=== PATIENT | female | born 1985 | race Two or more races ===

== ENCOUNTER 2019-12-16 11:20 | Emergency (ER) | payer MEDICAID, OTHER ==
--- NOTE | 2019-12-16 12:37 | ER Document Report ---
HPI - HPI Time Seen by Provider: 12/16/19 12:27 Notes: CHIEF COMPLAINT: Right ear pain and drainage for 3 days HPI: 34-year-old female presenting to the emergency department complaining of nasal congestion slight cough sore throat over the last 3 days. No fever. Patient began having increasing right ear pain as well over the last 3 days and began having bloody drainage over the last 2. Reports prior history of tubes in the right ear ROS: See HPI - all other systems were reviewed and are otherwise negative Constitutional: no fever Eyes: no drainage, no blurred vision ENT: + runny nose, + sore throat, positive ear pain and drainage Cardiovascular: no chest pain Resp: no SOB, no cough GI: no vomiting, no diarrhea, no abdominal pain : no dysuria Integumentary: no rash Allergy: no hives Musculoskeletal: no extremity pain or swelling Neurological: no numbness/tingling, no weakness MEDICATIONS: I agree with the patient medications as charted by the RN. ALLERGIES: I agree with the allergies as charted by the RN. PAST MEDICAL HISTORY/PAST SURGICAL HISTORY: Reviewed and agree as charted by RN. SOCIAL HISTORY: Reviewed and agree as charted by RN. FAMILY HISTORY: No significant familial comorbid conditions directly related to patient complaint EXAM: Reviewed vital signs as charted by RN. CONSTITUTIONAL: Alert and oriented and responds appropriately to questions. Well-appearing; well-nourished, mild distress secondary to pain HEAD: Normocephalic; atraumatic EYES: PERRL; Conjunctivae clear, sclerae non-icteric ENT: normal nose; positive clear rhinorrhea; moist mucous membranes; pharynx without lesions noted, no uvula edema or deviation, no tonsillar hypertrophy, phonation normal. Left tympanic membrane is not hyperemic but is bulging with serous fluid. Right tympanic membrane is hyperemic with some blood behind the membrane with a small perforation noted at approximately 7:00. NECK: Supple without meningismus; non-tender; no cervical lymphadenopathy, no masses CARD: RRR; no murmurs, no clicks, no rubs, no gallops; symmetric distal pulses RESP: Normal chest excursion without splinting or tachypnea; breath sounds clear and equal bilaterally; no wheezes, no rhonchi, no rales, pulse oximetry ABD/GI: Normal bowel sounds; non-distended; soft, non-tender, no rebound, no guarding; no palpable organomegaly or masses. BACK: The back appears normal and is non-tender to palpation, there is no CVA tenderness EXT: Normal ROM in all joints; no cyanosis, no effusions, no edema SKIN: Normal color for age and race; warm; dry; good turgor; no acute lesions noted NEURO: Moves all extremities equally; Motor and sensory function intact PSYCH: The patient's mood and manner are appropriate. Grooming and personal hygiene are appropriate. MDM: 34-year-old female with likely right ear infection with a small perforation now. Has used Floxin drops previously per the patient. Does not have an ENT in [facility]. Given her infection will place her on both oral antibiotics and eardrops, states she is allergic to Tylenol with codeine has never taken synthetics, states it makes her heart beat fast Past Medical History - Social History Smoking Status: Unknown if Ever Smoked Family History: Reviewed & Not Pertinent Discharge - Discharge Clinical Impression: Otitis media, right Qualifiers: Otitis media type: unspecified Qualified Code(s): H66.91 - Otitis media, unspecified, right ear Perforated tympanic membrane Qualifiers: Laterality: right Qualified Code(s): H72.91 - Unspecified perforation of tympanic membrane, right ear Condition: Stable Disposition: HOME, SELF-CARE Instructions: Perforated Eardrum ([facility]) Additional Instructions: Medications as prescribed no driving if taking narcotics. Follow-up closely with ENT for further evaluation and treatment call for appointment Prescriptions: Amoxicillin 1 tab PO TID #30 tab Ciprofloxacin HCl/Hc [Cipro HC Otic Suspension] 3 drop AD Q6 #1 bottle Hydrocodone/Acetaminophen [[place] 5-325 mg Tablet] 1 tab PO Q4 PRN #15 tablet PRN Reason: Referrals: PIERRE COTA DO [ASSOCIATE] - Follow up as needed
[2019-12-16 13:21] VITALS: BP 143/78
== END 2019-12-16 13:21 | disposition home or self-care (01) ==
LOC: ER 11:20
DX: H66.91 Otitis media, unspecified, right ear (principal); H72.91 Unspecified perforation of tympanic membrane, right ear; R09.81 Nasal congestion; J02.9 Acute pharyngitis, unspecified; J34.89 Other specified disorders of nose and nasal sinuses; Z88.8 Allergy status to other drugs, medicaments and biological substances
CPT/HCPCS: 99282

== ENCOUNTER → 2020-04-07 | Outpatient (CLI) | payer MEDICAID ==
--- NOTE | 2020-04-07 15:56 | RADIOLOGY REPORT (SQ) ---
EXAM DESCRIPTION: U/S [id number] TRNABD 1GES W/ODOP IMAGES COMPLETED DATE/TIME: 04/07/2020 3:40 pm REASON FOR STUDY: ENCOUNTER FOR SUPERVISION OF OTHER NORMAL , FIRST TRIMESTER Z34.81 ENCOU NTER FOR SUPRVSN OF NORMAL , FIRST TRIM COMPARISON: None. TECHNIQUE: Transabdominal static and realtime grayscale images acquired of the pelvis. Additional se lected spectral and color Doppler images recorded. All images stored on PACs. bHCG: Not available CLINICAL DATES: 9 weeks 3 days LIMITATIONS: None. FINDINGS: FETUS: Single Living intrauterine . ULTRASOUND EGA: 9 weeks 4 days ULTRASOUND HARJIT: 11/06/2020 EFW: Not applicable less than 20 weeks. CRL: 2.77 cm FHR: 178 beats per minute. SURVEY: Too early to assess. AMNIOTIC FLUID: Adequate amount. PLACENTA: Not yet developed due to early gestation. SUBCHORIONIC BLEED: Yes SIZE OF BLEED: 2 x 0.9 x 1.2 cm UTERUS: No masses. No anomalies. CERVICAL LENGTH: 3.7 cm Closed. RIGHT ADNEXA: Normal ovary with normal vascular flow. 3.1 x 1.9 x 1.5 cm. 16 mm corpus luteum. No adnexal free fluid. No adnexal masses. LEFT ADNEXA: Ovary not seen. No adnexal free fluid. No adnexal masses. FREE FLUID: None. OTHER: No other significant finding. IMPRESSION: LIVING INTRAUTERINE . EGA 9 weeks 4 days. Trimester of : First trimester - 0 to 13 weeks. TECHNICAL DOCUMENTATION: JOB ID: [id number] [employer]- All Rights Reserved rev-02/28 Reading location - IP/workstation name: [email or web address]
== END ==
LOC: RAD 14:43
PROVIDERS: ATTEND Nurse Practitioner Family
DX: O34.81 Maternal care for other abnormalities of pelvic organs, first trimester (principal); N83.11 Corpus luteum cyst of right ovary; Z3A.09 9 weeks gestation of pregnancy
CPT/HCPCS: 76801

== ENCOUNTER 2020-04-18 18:28 | Emergency (ER) | payer MEDICAID ==
--- NOTE | 2020-04-18 19:34 | ER Document Report ---
ED Medical Screen (RME) - General Chief Complaint: Vag Bleeding, +preg <12wks Stated Complaint: VAGINAL BLEEDING Time Seen by Provider: 04/18/20 19:28 Primary Care Provider: FREDDIE JERRY ARNP [Primary Care Provider] - Follow up as needed Mode of Arrival: Ambulatory Information source: Patient Notes: 34-year-old female presented to ED for complaint of vaginal bleeding pelvic pain and back pain and she states she is 11 weeks . She states she is 4 para 1. Last menstrual cycle was February 01, 2020. She lives alone with her child. 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 Patient is alert oriented respirations regular nonlabored speaking in full sentences walks with even steady gait. I have greeted and performed a rapid initial assessment of this patient. A comprehensive ED assessment and evaluation of the patient, analysis of test results and completion of medical decision making process will be conducted by an additional ED providers. TRAVEL OUTSIDE OF THE [place] IN LAST 30 DAYS: No - Related Data Allergies/Adverse Reactions: codeine Allergy (Verified 04/18/20 19:33) Physical Exam - Vital signs Vitals: Temp Pulse Resp BP Pulse Ox 98.9 F 111 H 20 128/81 H 100 04/18/20 18:39 04/18/20 18:39 04/18/20 18:39 04/18/20 18:39 04/18/20 18:39 Course - Vital Signs Vital signs: Temp Pulse Resp BP Pulse Ox 98.9 F 111 H 20 128/81 H 100 04/18/20 18:39 04/18/20 18:39 04/18/20 18:39 04/18/20 18:39 04/18/20 18:39 Doctor's Discharge - Discharge Referrals: FREDDIE JERRY ARNP [Primary Care Provider] - Follow up as needed
--- NOTE | 2020-04-18 20:27 | RADIOLOGY REPORT (SQ) ---
US PELVIS HISTORY: Early . Pelvic pain. COMPARISON: 04/07/2020 TECHNIQUE: Grayscale, color Doppler, and spectral Doppler ultrasound images of the pelvis were obtained. FINDINGS: There is an intrauterine gestational sac with a yolk sac and pole visualized. The crown-rump length measures 4.4 cm corresponding to 11 weeks 2 days. The heart rate is 182 bpm. There is an adjacent subchorionic hemorrhage measuring 2.2 x 2.0 cm. The cervix measures 3.2 cm and contains small amount of fluid. The left ovary was not visualized. The right ovary measures 4.4 cm and contains a 1.4 cm corpus luteum cyst. There is normal color Doppler blood flow in the right ovary. No free fluid. IMPRESSION: 1. Single live IUP with estimated gestational age 11 weeks 2 days. 2. Small adjacent subchorionic hematoma; attention on follow-up imaging is suggested. 3. 1.4 cm right ovarian corpus luteum cyst, for which no follow-up imaging is needed.
[2020-04-18 20:57] LABS: ABSOLUTE BASOPHILS # (AUTO) 0.1 10^3/uL (0.0-0.2); ABSOLUTE LYMPHOCYTES (AUTO) 2.3 10^3/uL (0.5-4.7); ABSOLUTE MONOCYTES (AUTO) 0.7 10^3/uL (0.1-1.4); ABSOLUTE NEUT (AUTO) 8.1 10^3/uL (1.7-8.2); BASOPHILS % (AUTO) 0.9 % (0-2); EOSINOPHILS % (AUTO) 0.4 % (0-6); HEMATOCRIT 32.2 % (36.0-47.0); HEMOGLOBIN 10.7 g/dL (12.0-15.5); LYMPHOCYTES % (AUTO) 20.5 % (13-45); MEAN CORPUSCULAR HEMOGLOBIN 27.6 pg (27.0-33.4); MEAN CORPUSCULAR HGB CONC 33.4 g/dL (32.0-36.0); MEAN CORPUSCULAR VOLUME 83 fl (80-97); MONOCYTES % (AUTO) 6.4 % (3-13); PLATELET COUNT 389 10^3/uL (150-450); RED BLOOD COUNT 3.89 10^6/uL (3.72-5.28); RED CELL DISTRIBUTION WIDTH 17.3 % (11.5-14.0); SEGMENTED NEUTROPHILS % (AUTO) 71.8 % (42-78); TOTAL CELLS COUNTED % (AUTO) 100 %; WHITE BLOOD COUNT 11.3 10^3/uL (4.0-10.5)
[2020-04-18 21:00] LABS: APPEARANCE,URINE CLEAR; BILIRUBIN,URINE NEGATIVE (NEGATIVE); COLOR,URINE YELLOW; GLUCOSE, URINE NEGATIVE (NEGATIVE); KETONES,URINE NEGATIVE (NEGATIVE); LEUKOCYTE ESTERASE,URINE NEGATIVE (NEGATIVE); NITRITE,URINE NEGATIVE (NEGATIVE); PROTEIN,URINE NEGATIVE (NEGATIVE); URINE SPECIFIC GRAVITY 1.028; UROBILINOGEN,URINE NEGATIVE mg/dL (<2.0)
[2020-04-18 21:17] LABS: ALBUMIN 3.9 g/dL (3.5-5.0); ALKALINE PHOSPHATASE 69 U/L (38-126); ANION GAP 8 (5-19); ASPARTATE AMINO TRANSFERASE 22 U/L (14-36); BILIRUBIN,TOTAL 0.4 mg/dL (0.2-1.3); BLOOD UREA NITROGEN 15 mg/dL (7-20); CARBON DIOXIDE 23 mmol/L (22-30); CHLORIDE 103 mmol/L (98-107); GLUCOSE 104 mg/dL (75-110); POTASSIUM 4.4 mmol/L (3.6-5.0); TOTAL PROTEIN 7.7 g/dL (6.3-8.2)
--- NOTE | 2020-04-18 22:34 | ER Document Report ---
ED General - General Chief Complaint: Vaginal Bleeding Stated Complaint: VAGINAL BLEEDING Time Seen by Provider: 04/18/20 19:28 Primary Care Provider: FREDDIE JERRY ARNP [NO LOCAL MD] - Follow up as needed Mode of Arrival: Ambulatory Information source: Patient Notes: Patient is a 34-year-old female G4, P1 presenting to the emergency department chief complaint of vaginal bleeding in the setting of . Patient reports she is approximate 11 weeks . She started bleeding this morning. She denies passage of any clots. She states that the bleeding has been very light. She denies any abdominal pain or pelvic pain. She does not know her blood type. She was seen by the provider in triage. TRAVEL OUTSIDE OF THE [place] IN LAST 30 DAYS: No - Related Data Allergies/Adverse Reactions: codeine Allergy (Verified 04/18/20 19:33) Home Medications: PRE-NATALS Past Medical History - General Information source: Patient - Social History Smoking Status: Never Smoker Frequency of alcohol use: None Drug Abuse: None Family History: Reviewed & Not Pertinent Patient has homicidal ideation: No - Medical History Medical History: Negative Surgical Hx: Negative - Immunizations Immunizations up to date: Yes Review of Systems - Review of Systems Female Genitourinary: Vaginal bleeding -: Yes All other systems reviewed and negative Physical Exam - Vital signs Vitals: Temp Pulse Resp BP Pulse Ox 98.9 F 111 H 20 128/81 H 100 04/18/20 18:39 04/18/20 18:39 04/18/20 18:39 04/18/20 18:39 04/18/20 18:39 - Notes Notes: PHYSICAL EXAMINATION: GENERAL: Well-appearing, well-nourished and in no acute distress. HEAD: Atraumatic, normocephalic. EYES: Pupils equal round and reactive to light, extraocular movements intact, conjunctiva are normal. ENT: Nares patent, oropharynx clear without exudates. Moist mucous membranes. NECK: Normal range of motion, supple without lymphadenopathy LUNGS: Breath sounds clear to auscultation bilaterally and equal. No wheezes rales or rhonchi. HEART: Regular rate and rhythm without murmurs ABDOMEN: Soft, nontender, nondistended abdomen. No guarding, no rebound. No masses appreciated. Female : Declined Musculoskeletal: Normal range of motion, no pitting or edema. No cyanosis. NEUROLOGICAL: Cranial nerves grossly intact. Normal speech, normal gait. Normal sensory, motor exams PSYCH: Normal mood, normal affect. SKIN: Warm, Dry, normal turgor, no rashes or lesions noted. Course - Re-evaluation Re-evalutation: Laboratory 04/18/20 04/18/20 04/18/20 20:25 20:25 20:25 WBC 11.3 H RBC 3.89 Hgb 10.7 L Hct 32.2 L MCV 83 MCH 27.6 MCHC 33.4 RDW 17.3 H Plt Count 389 Lymph % (Auto) 20.5 [place] % (Auto) 6.4 Eos % (Auto) 0.4 Baso % (Auto) 0.9 Absolute Neuts (auto) 8.1 Absolute Lymphs (auto) 2.3 Absolute Monos (auto) 0.7 Absolute Eos (auto) 0.0 Absolute Basos (auto) 0.1 Seg Neutrophils % 71.8 Sodium 133.5 L Potassium 4.4 Chloride 103 Carbon Dioxide 23 Anion Gap 8 BUN 15 Creatinine 0.63 Est GFR ( Amer) > 60 Est GFR (MDRD) Non-Af > 60 Glucose 104 Calcium 9.0 Total Bilirubin 0.4 Direct Bilirubin 0.0 Neonat Total Bilirubin Not Reportable Neonat Direct Bilirubin Not Reportable Neonat Indirect Bili Not Reportable AST 22 ALT 14 Alkaline Phosphatase 69 Total Protein 7.7 Albumin 3.9 Lipase 64.0 Beta HCG, Quant 71325.00 H Total Beta HCG POSITIVE Urine Color Urine Appearance Urine pH Ur Specific [place] Urine Protein Urine Glucose (UA) Urine Ketones Urine Blood Urine Nitrite Urine Bilirubin Urine Urobilinogen Ur Leukocyte Esterase Urine WBC (Auto) Urine RBC (Auto) Squamous Epi Cells Auto Urine Mucus (Auto) Urine Ascorbic Acid Blood Type O POSITIVE Rhogam Indicated RHOGAM NOT INDICATED 04/18/20 20:25 WBC RBC Hgb Hct MCV MCH MCHC RDW Plt Count Lymph % (Auto) [place] % (Auto) Eos % (Auto) Baso % (Auto) Absolute Neuts (auto) Absolute Lymphs (auto) Absolute Monos (auto) Absolute Eos (auto) Absolute Basos (auto) Seg Neutrophils % Sodium Potassium Chloride Carbon Dioxide Anion Gap BUN Creatinine Est GFR ( Amer) Est GFR (MDRD) Non-Af Glucose Calcium Total Bilirubin Direct Bilirubin Neonat Total Bilirubin Neonat Direct Bilirubin Neonat Indirect Bili AST ALT Alkaline Phosphatase Total Protein Albumin Lipase Beta HCG, Quant Total Beta HCG Urine Color YELLOW Urine Appearance CLEAR Urine pH 5.0 Ur Specific [place] 1.028 Urine Protein NEGATIVE Urine Glucose (UA) NEGATIVE Urine Ketones NEGATIVE Urine Blood NEGATIVE Urine Nitrite NEGATIVE Urine Bilirubin NEGATIVE Urine Urobilinogen NEGATIVE Ur Leukocyte Esterase NEGATIVE Urine WBC (Auto) 1 Urine RBC (Auto) 1 Squamous Epi Cells Auto 1 Urine Mucus (Auto) FEW Urine Ascorbic Acid 40 H Blood Type Rhogam Indicated Transvaginal US 04/18/20 19:32 IMPRESSION: 1. Single live IUP with estimated gestational age 11 weeks 2 days. 2. Small adjacent subchorionic hematoma; attention on follow-up imaging is suggested. 3. 1.4 cm right ovarian corpus luteum cyst, for which no follow-up imaging is needed. Patient's ultrasound shows that she has a subchorionic hematoma. The rest of her work-up today has been reassuring. This was discussed with the patient with an revenue cycle manager present. She will follow-up with HOME HEALTH TRAVEL OT tomorrow and will likely need repeat imaging. Patient and spouse verbalized understanding of this. - Vital Signs Vital signs: Temp Pulse Resp BP Pulse Ox 98.6 F 87 18 125/78 98 04/18/20 22:35 04/18/20 22:35 04/18/20 22:35 04/18/20 22:35 04/18/20 22:35 - Laboratory Result Diagrams: 04/18/20 20:25 04/18/20 20:25 Laboratory results interpreted by me: 04/18/20 04/18/20 04/18/20 20:25 20:25 20:25 WBC 11.3 H Hgb 10.7 L Hct 32.2 L RDW 17.3 H Sodium 133.5 L Beta HCG, Quant 46932.00 H Urine Ascorbic Acid 40 H Discharge - Discharge Clinical Impression: Vaginal bleeding affecting early Subchorionic hematoma Qualifiers: Fetus number: fetus 1 of multiple gestation Trimester: second trimester Qualified Code(s): O41.8X21 - Other specified disorders of amniotic fluid and membranes, second trimester, fetus 1 Condition: Stable Disposition: HOME, SELF-CARE Additional Instructions: As discussed please follow-up with your HOME HEALTH TRAVEL OT provider or the health department. A copy of your results has been given to you for their review. Please return to the emergency department with worsening bleeding that is bleeding through more than 1 pad per hour for 3 hours consecutively or any worsening symptoms such as feeling like you are going to pass out. Forms: Return to Work Referrals: FREDDIE JERRY ARNP [NO LOCAL MD] - Follow up as needed
[2020-04-18 22:36] VITALS: BP 125/78
== END 2020-04-18 22:53 | disposition home or self-care (01) ==
LOC: ER 18:28
DX: O41.91X0 Disorder of amniotic fluid and membranes, unspecified, first trimester, not applicable or unspecified (principal); Z3A.11 11 weeks gestation of pregnancy; Z88.6 Allergy status to analgesic agent
CPT/HCPCS: 36415; 76817; 80053; 81001; 83690; 84702; 85025; 86900; 86901; 87086; 93976; 99284

== ENCOUNTER 2020-10-18 04:36 | Outpatient (CLI) | payer MEDICAID ==
[2020-10-18 05:09] LABS: APPEARANCE,URINE CLOUDY; BILIRUBIN,URINE NEGATIVE (NEGATIVE); COLOR,URINE YELLOW; GLUCOSE, URINE NEGATIVE (NEGATIVE); KETONES,URINE NEGATIVE (NEGATIVE); LEUKOCYTE ESTERASE,URINE LARGE (NEGATIVE); NITRITE,URINE NEGATIVE (NEGATIVE); PROTEIN,URINE 30 mg/dL (NEGATIVE); URINE SPECIFIC GRAVITY 1.008; UROBILINOGEN,URINE NEGATIVE mg/dL (<2.0)
[2020-10-18 05:24] LABS: URINE AMPHETAMINES SCREEN NEGATIVE; URINE BARBITURATES SCREEN NEGATIVE; URINE BENZODIAZEPINES SCREEN NEGATIVE; URINE COCAINE SCREEN NEGATIVE; URINE MARIJUANA (THC) SCREEN NEGATIVE; URINE METHADONE SCREEN NEGATIVE; URINE PHENCYCLIDINE SCREEN NEGATIVE
[2020-10-18] MEDS ORDERED: PENICILLIN G-K 5 MILLION UNIT VIAL ONE (05:42)
[2020-10-18] MEDS ORDERED: PENICILLIN G-K 5 MILLION UNIT VIAL IV ONE (06:31)
--- NOTE | 2020-10-18 07:11 | PDOC TRANSFER SUMMARY ---
General Admission Date/PCP: ROSEMARY BAKER MD Admission Date: 10/18/20 Transfer Date: 10/18/20 Accepting Facility: [facility] Accepting Physician: Dr. 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 - Allergies Allergies/Adverse Reactions: codeine Allergy (Verified 04/18/20 19:33) Hospital Course Hospital Course: patient presented to L&D with complaint of rupture of membranes. 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 The neonatololgist here at [facility] has recommended delivery at a [facility] facility due to this issues of the fetus. In addition the patient has a bmi of 61 currently and would benefit from higher level of care for anesthesia. Dr. Villalpando at [facility] has accepted this patient for transfer. Thank you for the assistance in her care. Physical Exam Vital Signs: Intake & Output 10/16/20 10/17/20 10/18/20 06:59 06:59 06:59 Weight 163.7 kg Results Laboratory Results: 10/18/20 04:45 Urine Color YELLOW Urine Appearance CLOUDY Urine pH 6.0 Ur Specific [place] 1.008 Urine Protein 30 H Urine Glucose (UA) NEGATIVE Urine Ketones NEGATIVE Urine Blood LARGE H Urine Nitrite NEGATIVE Ur Leukocyte Esterase LARGE H Plan Discharge Plan: see hpi above Time Spent: Greater than 30 Minutes
--- NOTE | 2020-10-18 10:08 | Non Stress Test Report ---
Non Stress Test Datetime Report Generated by CPN: 10/18/2020 10:08 DEMOGRAPHIC EGA NST: 37.1 INDICATION Indication for Study (NST) Other: LC waiting for transport for [facility] VITAL SIGNS Temperature - NST: 99.1 Pulse - NST: 102 RESP - NST: 22 NBPSYS NST: 140 NBPDIA NST: 77 MONITORING Monitor Explained: Monitor Explained; Test Explained; Patient Verbalized Understanding Time on Monitor: 10/18/2020 04:52 Time off Monitor: 10/18/2020 09:46 NST Duration: 294 NST INTERVENTIONS NST Interventions: IV Fluids Physician Notified NST: A. Ball CNM BABY A: [id number] BABY A Movement : Present Contraction Frequency : Occasional FHR Baseline : 140 Accelerations : 15X15 Decelerations : None Variability : Moderate 6-25bpm NST Review: Meets Criteria for Reactive NST NST Review and Verified By : sautry NST Results: Reactive NST COMMENTS NST Comments: transferred to [facility] for tertiary care. NST REPORT Report Trigger: Send Report
== END 2020-10-18 09:55 | disposition short-term general hospital (02) ==
LOC: LC 04:36
PROVIDERS: ATTEND Obstetrics & Gynecology
DX: O42.92 Full-term premature rupture of membranes, unspecified as to length of time between rupture and onset of labor (principal); O35.1XX0 Maternal care for (suspected) chromosomal abnormality in fetus, not applicable or unspecified; O35.8XX0 Maternal care for other (suspected) fetal abnormality and damage, not applicable or unspecified; O34.219 Maternal care for unspecified type scar from previous cesarean delivery; O09.523 Supervision of elderly multigravida, third trimester; O99.213 Obesity complicating pregnancy, third trimester; E66.9 Obesity, unspecified; Z3A.37 37 weeks gestation of pregnancy; Z88.6 Allergy status to analgesic agent
CPT/HCPCS: 59025; 81005; 80307; 84112; J2540